=== PATIENT | female | born 1965 | race Caucasian/White ===

== ENCOUNTER 2024-10-04 14:03 | Inpatient (IN) | payer OTHER ==
[~2024-10-04] VITALS: Ht 162.6 cm; Wt 102.1 kg
[2024-10-04] MEDS ORDERED: TIRZ2.5P3 SQ (14:15)
[2024-10-04] MEDS ORDERED: FLUT1BLS8 IH (14:15)
[2024-10-04] MEDS ORDERED: ESCI-8 PO (14:15)
[2024-10-04] MEDS ORDERED: OXCA600T18 PO (14:15)
[2024-10-04] MEDS ORDERED: INSU3INS10 SQ (14:15)
[2024-10-04] MEDS ORDERED: ALBU18HF12 IH (14:15)
[2024-10-04] MEDS ORDERED: INSU100I3 SQ (14:15)
[2024-10-04] MEDS ORDERED: TRAM50TA5 PO (14:15)
[2024-10-04] MEDS ORDERED: ARIP5TAB37 PO (14:15)
[2024-10-04] MEDS ORDERED: QUET100T PO (14:15)
[2024-10-04] MEDS ORDERED: TELM40TA8 PO (14:15)
[2024-10-04] MEDS ORDERED: AMLO5TAB66 PO (14:22)
[2024-10-04] MEDS ORDERED: ROPI2TAB26 PO (14:22)
[2024-10-04 14:38] LABS: BASOPHILS % (AUTO) 0.6 % (0.0-2.0); EOSINOPHILS % (AUTO) 1.6 % (1.0-6.0); HEMATOCRIT 40.3 % (36-46); HEMOGLOBIN 13.5 g/dL (12.0-16.0); LYMPHOCYTES # (AUTO) 3.8 K/uL (1.0-4.8); MEAN CORPUSCULAR HEMOGLOBIN 26.5 pg (26.0-34.0); MEAN CORPUSCULAR HGB CONC 33.5 G/dL (31.0-37.0); MEAN CORPUSCULAR VOLUME 79 fL (80-100); MONOCYTES # (AUTO) 0.5 K/uL (0.1-1.0); NEUTROPHILS # (AUTO) 3.5 K/uL (1.8-7.7); NEUTROPHILS % (AUTO) 43.8 % (40.0-70.0); PLATELET COUNT (AUTO) 337 K/uL (150-450); RED BLOOD CELL COUNT(AUTO) 5.11 MIL/uL (4.00-5.20); RED CELL DISTRIBUTION WIDTH 15.2 % (11.5-14.5); WHITE BLOOD COUNT (AUTO) 7.9 K/uL (4.5-11.0)
[2024-10-04 14:46] LABS: CALCIUM, TOTAL 9.4 mg/dL (8.8-10.5); CREATININE 1.27 mg/dL (0.60-1.30); POTASSIUM 4.6 mmol/L (3.5-5.1)
[2024-10-04 16:09] LABS: COVID AG,FIA SOURCE NASAL SWAB
[2024-10-04 16:41] LABS: SARS-COV2 (COVID) ANTIGEN,FIA Negative (Negative)
[2024-10-04] MEDS ORDERED: haloperidoL 5 MG TABLET PO PRN (16:45)
[2024-10-04] MEDS ORDERED: LORazepam 2 MG TABLET PO PRN (16:45)
[2024-10-04] MEDS: LORazepam 2 MG/ML VIAL IM ONE (20:06)
[2024-10-04] MEDS: DiphenhydrAMINE HCL 50 MG/ML VIAL IM ONE (20:06)
[2024-10-04] MEDS: HALOPERIDOL LACTATE 5 MG/ML VIAL IM ONE (20:08)
[2024-10-04 21:36] VITALS: O2SAT 99
[2024-10-04] MEDS: ZOLPIDEM TARTRATE 10 MG TABLET PO PRN (22:26)
[2024-10-04 23:40] VITALS: BP 131/100; PULSE 82; RESP 18; TEMP 97.6; O2SAT 99
[2024-10-05 00:16] LABS: GLUCOMETER DEV NAME(LOC) BV3N.2; GLUCOSE,POINT OF CARE 90 MG/DL (70-110)
[2024-10-05 02:06] LABS: GLUCOMETER DEV NAME(LOC) BV3N.2; GLUCOSE,POINT OF CARE 39 MG/DL (70-110)
[2024-10-05] MEDS ORDERED: BACITRACIN 28 GM OINTMENT TP PRN (08:15)
[2024-10-05] MEDS ORDERED: LOPERAMIDE HCL 2 MG CAPSULE PO PRN (08:15)
[2024-10-05] MEDS ORDERED: OMEPRAZOLE 20 MG CAPSULE PO PRN (08:15)
[2024-10-05] MEDS ORDERED: MAG HYDROX/ALUMINUM HYD/SIMETH ES 30 ML SUSPENSION UDCUP PO PRN (08:15)
[2024-10-05] MEDS ORDERED: IBUPROFEN 600 MG TABLET PO PRN (08:15)
[2024-10-05] MEDS ORDERED: ONDANSETRON 4 MG TABLET PO PRN (08:15)
[2024-10-05] MEDS ORDERED: PETROLATUM,WHITE 28 GM JELLY TP PRN (08:15)
[2024-10-05] MEDS ORDERED: GLUCAGON,HUMAN RECOMBINANT 1 MG VIAL IM PRN (08:15)
[2024-10-05] MEDS ORDERED: CloNIDine HCL 0.1 MG TABLET PO PRN (08:15)
[2024-10-05] MEDS ORDERED: BENZOCAINE/MENTHOL [CEPACOL] LOZENGE PO PRN (08:15)
[2024-10-05] MEDS ORDERED: MAGNESIUM HYDROXIDE SUSPENSION 30 ML UDCUP PO PRN (08:15)
[2024-10-05] MEDS ORDERED: DOCUSATE SODIUM 100 MG CAPSULE PO PRN (08:15)
[2024-10-05] MEDS ORDERED: ALBUTEROL SULFATE HFA 90 MCG/PUFF 8 GM INHALER IH PRN (08:15)
[2024-10-05 08:17] VITALS: BP 150/85; PULSE 75; RESP 16; TEMP 97.6; O2SAT 98
[2024-10-05] MEDS ORDERED: AMIT100T2 PO (10:24)
[2024-10-05] MEDS ORDERED: AMIT25TA9 PO (10:24)
[2024-10-05] MEDS ORDERED: GABA-1181 PO (10:24)
[2024-10-05] MEDS: OXcarbazepine 300 MG TABLET PO SCH (10:49)
[2024-10-05] MEDS: INSULIN LISPRO 100 UNITS/ML SQ PRN (11:53)
[2024-10-05 13:00] LABS: GLUCOMETER DEV NAME(LOC) BV3N.2; GLUCOSE,POINT OF CARE 222 MG/DL (70-110)
[2024-10-05] MEDS ORDERED: TraMADol HCL 50 MG TABLET PO PRN (15:00)
[2024-10-05] MEDS ORDERED: LORazepam 2 MG/ML VIAL ONE (16:42)
[2024-10-05] MEDS ORDERED: DiphenhydrAMINE HCL 50 MG/ML VIAL ONE (16:43)
[2024-10-05] MEDS ORDERED: HALOPERIDOL LACTATE 5 MG/ML VIAL ONE (16:43)
[2024-10-05] MEDS: AMITRIPTYLINE HCL 50 MG TABLET PO SCH (16:44)
[2024-10-05] MEDS: GABAPENTIN 300 MG CAPSULE PO SCH (16:45)
[2024-10-05] MEDS: DiphenhydrAMINE HCL 50 MG/ML VIAL IM ONE (17:07)
[2024-10-05] MEDS: LORazepam 2 MG/ML VIAL IM ONE (17:13)
[2024-10-05] MEDS: HALOPERIDOL LACTATE 5 MG/ML VIAL IM ONE (17:13)
[2024-10-05] MEDS: ARIPiprazole 5 MG TABLET PO SCH (18:29)
[2024-10-05] MEDS: ESCITALOPRAM OXALATE 10 MG TABLET PO SCH (18:30)
[2024-10-05] MEDS: AMITRIPTYLINE HCL 25 MG TABLET PO SCH (18:30)
[2024-10-05 19:26] LABS: GLUCOMETER DEV NAME(LOC) BV3N.2; GLUCOSE,POINT OF CARE 261 MG/DL (70-110)
[2024-10-05] MEDS: INSULIN GLARGINE,HUM.REC.ANLOG 100 UNITS/ML SQ SCH (20:18)
[2024-10-05 20:50] VITALS: RESP 17
[2024-10-05] MEDS: ACETAMINOPHEN 325 MG TABLET PO PRN (20:50)
[2024-10-05 22:16] LABS: GLUCOMETER DEV NAME(LOC) BV3N.2; GLUCOSE,POINT OF CARE 186 MG/DL (70-110)
[2024-10-06 00:40] LABS: GLUCOMETER DEV NAME(LOC) BV3N.2; GLUCOSE,POINT OF CARE 43 MG/DL (70-110)
[2024-10-06 01:26] LABS: GLUCOMETER DEV NAME(LOC) BV3N.2; GLUCOSE,POINT OF CARE 113 MG/DL (70-110)
[2024-10-06 01:26] LABS: GLUCOMETER DEV NAME(LOC) BV3N.2; GLUCOSE,POINT OF CARE 65 MG/DL (70-110)
[2024-10-06 02:50] LABS: GLUCOMETER DEV NAME(LOC) BV3N.2; GLUCOSE,POINT OF CARE 79 MG/DL (70-110)
[2024-10-06 04:56] LABS: GLUCOMETER DEV NAME(LOC) BV3N.2; GLUCOSE,POINT OF CARE 110 MG/DL (70-110)
[2024-10-06 06:21] VITALS: BP 149/76; PULSE 82; RESP 16; TEMP 97.5; O2SAT 99
[2024-10-06 06:21] LABS: GLUCOMETER DEV NAME(LOC) BV3N.2; GLUCOSE,POINT OF CARE 114 MG/DL (70-110)
[2024-10-06 08:01] LABS: GLUCOMETER DEV NAME(LOC) BV3N.2; GLUCOSE,POINT OF CARE 138 MG/DL (70-110)
[2024-10-06 08:22] VITALS: BP 130/76; PULSE 76; RESP 18; TEMP 97.7; O2SAT 100
[2024-10-06] MEDS ORDERED: AmLODIPine BESYLATE 5 MG TABLET PO SCH ×2 (09:00)
[2024-10-06] MEDS: AmLODIPine BESYLATE 5 MG TABLET PO SCH (09:00)
[2024-10-06] MEDS: CYCLOBENZAPRINE HCL 10 MG TABLET PO SCH (09:00)
[2024-10-06] MEDS: TELMISARTAN 40 MG TABLET PO SCH (09:00)
[2024-10-06 10:51] VITALS: BP 130/76; PULSE 76; RESP 18; TEMP 97.7; O2SAT 100
[2024-10-06] MEDS ORDERED: NALOXONE HCL 0.4 MG/ML VIAL ONE (12:00)
[2024-10-06 12:40] LABS: GLUCOMETER DEV NAME(LOC) BV3N.2; GLUCOSE,POINT OF CARE 108 MG/DL (70-110)
[2024-10-06 16:46] LABS: GLUCOMETER DEV NAME(LOC) BV3N.2; GLUCOSE,POINT OF CARE 135 MG/DL (70-110)
[2024-10-06 20:45] LABS: GLUCOMETER DEV NAME(LOC) BV3N.2; GLUCOSE,POINT OF CARE 246 MG/DL (70-110)
[2024-10-06 23:46] VITALS: RESP 15
[2024-10-07 00:10] LABS: GLUCOMETER DEV NAME(LOC) BV3N.2; GLUCOSE,POINT OF CARE 149 MG/DL (70-110)
[2024-10-07 06:30] LABS: GLUCOMETER DEV NAME(LOC) BV3N.2; GLUCOSE,POINT OF CARE 107 MG/DL (70-110)
[2024-10-07 08:20] LABS: BASOPHILS % (AUTO) 0.8 % (0.0-2.0); HEMATOCRIT 37.8 % (36-46); HEMOGLOBIN 12.5 g/dL (12.0-16.0); LYMPHOCYTES # (AUTO) 1.9 K/uL (1.0-4.8); LYMPHOCYTES % (AUTO) 32.4 % (22.0-44.0); MEAN CORPUSCULAR HEMOGLOBIN 26.5 pg (26.0-34.0); MEAN CORPUSCULAR HGB CONC 33.1 G/dL (31.0-37.0); MEAN CORPUSCULAR VOLUME 80 fL (80-100); MONOCYTES # (AUTO) 0.3 K/uL (0.1-1.0); MONOCYTES % (AUTO) 5.7 % (2.0-9.0); NEUTROPHILS # (AUTO) 3.5 K/uL (1.8-7.7); NEUTROPHILS % (AUTO) 59.1 % (40.0-70.0); PLATELET COUNT (AUTO) 292 K/uL (150-450); RED BLOOD CELL COUNT(AUTO) 4.72 MIL/uL (4.00-5.20); RED CELL DISTRIBUTION WIDTH 14.9 % (11.5-14.5); WHITE BLOOD COUNT (AUTO) 5.9 K/uL (4.5-11.0)
[2024-10-07 08:25] VITALS: BP 149/80; PULSE 75; RESP 16; TEMP 97.5; O2SAT 98
[2024-10-07 08:32] LABS: HEMOGLOBIN A1C 8.3 % (3.8-5.6)
[2024-10-07 08:34] LABS: BILIRUBIN,TOTAL 0.4 mg/dL (0.1-1.0); CALCIUM, TOTAL 8.4 mg/dL (8.8-10.5); CHOL/HDL RATIO 3.9 (3.9-5.7); CREATININE 1.15 mg/dL (0.60-1.30); MAGNESIUM 2.2 mg/dL (1.80-2.40); PHOSPHORUS 3.5 mg/dL (2.5-4.9); THYROID STIMULATING HORMONE 1.45 uIU/mL (0.36-3.74); TOTAL PROTEIN, SERUM 6.6 g/dL (6.4-8.2)
[2024-10-07 08:49] VITALS: BP 149/80; PULSE 78; RESP 16; TEMP 97.5; O2SAT 98
[2024-10-07] MEDS: GlipiZIDE 5 MG TABLET PO SCH (11:57)
[2024-10-07 12:21] LABS: GLUCOMETER DEV NAME(LOC) BV3N.2; GLUCOSE,POINT OF CARE 203 MG/DL (70-110)
[2024-10-07 16:51] LABS: GLUCOMETER DEV NAME(LOC) BV3N.2; GLUCOSE,POINT OF CARE 102 MG/DL (70-110)
[2024-10-07] MEDS ORDERED: MetFORMIN HCL 500 MG TABLET PO SCH (17:00)
[2024-10-07 20:30] LABS: GLUCOMETER DEV NAME(LOC) BV3N.2; GLUCOSE,POINT OF CARE 152 MG/DL (70-110)
[2024-10-08 06:21] LABS: GLUCOMETER DEV NAME(LOC) BV3N.2; GLUCOSE,POINT OF CARE 156 MG/DL (70-110)
[2024-10-08 08:16] VITALS: BP 149/83; PULSE 83; RESP 16; TEMP 98.2; O2SAT 100
[2024-10-08] MEDS: OMEGA-3/DHA/EPA/FISH OIL 1,000 MG CAPSULE PO SCH (08:23)
[2024-10-08 13:10] LABS: GLUCOMETER DEV NAME(LOC) BV3N.2; GLUCOSE,POINT OF CARE 117 MG/DL (70-110)
== END 2024-10-08 13:15 | disposition left against medical advice (07) | DRG 885 ==
LOC: EMS 14:06 → B3A 22:41
PROVIDERS: ADMIT Psychiatry & Neurology Psychiatry; ATTEND Psychiatry & Neurology Psychiatry
PROC: GZHZZZZ Group Psychotherapy (ICD-10-PCS; principal; 2024-10-05)
DX: F25.1 Schizoaffective disorder, depressive type (principal); R45.851 Suicidal ideations; E11.9 Type 2 diabetes mellitus without complications; I10 Essential (primary) hypertension; Z20.822 Contact with and (suspected) exposure to COVID-19; G47.00 Insomnia, unspecified; F41.9 Anxiety disorder, unspecified; E66.9 Obesity, unspecified; E89.0 Postprocedural hypothyroidism; J45.909 Unspecified asthma, uncomplicated; F31.9 Bipolar disorder, unspecified; K59.00 Constipation, unspecified; Z79.899 Other long term (current) drug therapy; Z68.38 Body mass index [BMI] 38.0-38.9, adult; Z53.29 Procedure and treatment not carried out because of patient's decision for other reasons; Z91.51 Personal history of suicidal behavior
CPT/HCPCS: 70450; 80048; 80053; 80061; 82962; 83036; 83735; 84100; 84443; 85025; G0480; J1200; J1630; J1815; J2060; J2310

== ENCOUNTER 2024-10-06 08:12 | Emergency (ER) | payer OTHER ==
[~2024-10-06] VITALS: Ht 162.6 cm; Wt 102.3 kg
[~2024-10-06 08:12] MED LIST: ALBU18HF12 IH; AMIT100T2 PO; AMIT25TA9 PO; AMLO5TAB66 PO; ARIP5TAB37 PO; ESCI-8 PO; FLUT1BLS8 IH; GABA-1181 PO; INSU100I3 SQ; INSU3INS10 SQ; OXCA600T18 PO; QUET100T PO; ROPI2TAB26 PO; TELM40TA8 PO; TIRZ2.5P3 SQ; TRAM50TA5 PO
[2024-10-06 08:39] VITALS: BP 152/94; PULSE 71; RESP 16; TEMP 97.1; O2SAT 100
[2024-10-06] MEDS: ACETAMINOPHEN 500 MG TABLET PO ONE (09:15)
== END 2024-10-06 10:35 | disposition home or self-care (01) ==
LOC: EMS 08:12
DX: S60.211A Contusion of right wrist, initial encounter (principal); S09.90XA Unspecified injury of head, initial encounter; E11.649 Type 2 diabetes mellitus with hypoglycemia without coma; J45.909 Unspecified asthma, uncomplicated; F31.9 Bipolar disorder, unspecified; Z79.4 Long term (current) use of insulin; Z79.51 Long term (current) use of inhaled steroids; Z79.899 Other long term (current) drug therapy; Z90.89 Acquired absence of other organs; W22.03XA Walked into furniture, initial encounter; Y93.89 Activity, other specified; Y92.238 Other place in hospital as the place of occurrence of the external cause; Y99.8 Other external cause status
CPT/HCPCS: 82962; 99284; 73110-TC; 73120-TC; Z7502; Z7610